=== PATIENT | female | born 1950 | race Asian ===

== ENCOUNTER 2018-02-05 17:28 | Emergency (ER) | payer MEDICAID ==
[~2018-02-05] VITALS: Ht 152.4 cm; Wt 52.0 kg
[2018-02-05] MEDS ORDERED: ALBUTEROL (0.083%) 2.5MG/3ML NEB HHN STA (18:14)
[2018-02-05] MEDS ORDERED: METHYLPREDNISOLONE SOD SUCC 125 MG/2 ML VIAL IV STA (18:14)
[2018-02-05] MEDS ORDERED: IPRATROPIUM BROMIDE (0.02%) 0.5MG/2.5ML NEB HHN STA (18:14)
[2018-02-05 20:05] VITALS: BP 126/73
== END 2018-02-05 20:05 | disposition home or self-care (01) ==
LOC: ER 17:28
DX: J45.901 Unspecified asthma with (acute) exacerbation (principal); E78.00 Pure hypercholesterolemia, unspecified
CPT/HCPCS: 71045; 93005; 94640; 96374; 99284; J2930; J7611; Z7610